=== PATIENT | male | born 1980 | race American Indian/Alaskan Native ===

== ENCOUNTER 2019-09-16 03:07 | Emergency (ER) | payer MEDICAID, OTHER ==
[2019-09-16] MEDS ORDERED: Lisinopril 10 MG Tab PO ONE (03:48)
--- NOTE | 2019-09-16 03:53 | EDM.PDOC ---
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 He admits to using methamphetamine every other day however today was different he used methamphetamine in combination with a red bull and did not like the way it made him feel. When I asked him how I can help him today he states that he would like to get his blood pressure under better control - Related Data Allergies Allergy/AdvReac Type Severity Reaction Status Date / Time No Known Allergies Allergy Verified 09/16/19 03:21 Home Meds: Home Meds amLODIPine Besylate [Amlodipine Besylate] 5 mg PO DAILY 09/16/19 [History] lisinopriL [Lisinopril] 20 mg PO DAILY 09/16/19 [History] Past Medical History Cardiovascular History: Reports: Hypertension Psychiatric History: Reports: Addiction Social & Family History - Tobacco Use Smoking Status *Q: Current Every Day Smoker Years of Tobacco use: 18 Packs/Tins Daily: 0.2 - Alcohol Use Days Per Week of Alcohol Use: 3 Number of Drinks Per Day: 5 Total Drinks Per Week: 15 - Recreational Drug Use Recreational Drug Use: Yes Drug Use in Last 12 Months: Yes Recreational Drug Type: Reports: Marijuana/Hashish, Methamphetamine Recreational Drug Use Frequency: Daily ED ROS GENERAL - Review of Systems Review Of Systems: See Below Constitutional: Reports: No Symptoms HEENT: Reports: No Symptoms Cardiovascular: Reports: Palpitations GI/Abdominal: Reports: No Symptoms Psychiatric: Reports: Anxiety ED EXAM, GENERAL - Physical Exam Exam: See Below Exam Limited By: No Limitations General Appearance: Alert, WD/WN, No Apparent Distress Respiratory/Chest: No Respiratory Distress, Lungs Clear, Normal Breath Sounds, No Accessory Muscle Use, Chest Non-Tender Cardiovascular: Regular Rate, Rhythm, No Murmur, Tachycardia Course - Vital Signs Last Recorded V/S: Last Vital Signs Temp 97.7 F 09/16/19 03:20 Pulse 107 H 09/16/19 03:20 Resp 16 09/16/19 03:20 BP 160/111 H 09/16/19 03:25 Pulse Ox 100 09/16/19 03:20 - Orders/Labs/Meds Meds: Medications Discontinued Medications Generic Name Dose Route Start Last Admin Trade Name Naina PRDesi Reason Stop Dose Admin Lisinopril 20 mg 09/16/19 03:48 Prinivil PO 09/16/19 03:49 ONETIME ONE Departure - Departure Time of Disposition: 03:52 Disposition: Home, Self-Care 01 Condition: Poor Clinical Impression: Hypertension Qualifiers: Hypertension type: essential hypertension Qualified Code(s): I10 - Essential (primary) hypertension - Discharge Information Instructions: Hypertension, Adult, [id number], Preventing Hypertension Referrals: John Root Sr, MD [Primary Care Provider] - Additional Instructions: Recommend filling your prescription for lisinopril today and follow-up with your primary care in the next 3 to 5 days for reevaluation, call or return to the emergency department worsening of symptoms Sepsis Event Note (ED) - Evaluation Sepsis Screening Result: No Definite Risk - Focused Exam Vital Signs: Vital Signs Temp Pulse Resp BP Pulse Ox 09/16/19 03:25 160/111 H 09/16/19 03:20 97.7 F 107 H 16 197/135 H 100 - Assessment/Plan Plan: Assessment Acuity = acute Site and laterality = hypertension complicated in a patient with methamphetamine use Etiology = medical compliance Manifestations = elevated blood pressure Location of injury = Home Lab values = none Plan He has a prescription for his lisinopril at [facility] which she states he is going to 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
== END 2019-09-16 04:04 | disposition home or self-care (01) ==
LOC: JP.ED 03:07
DX: I10 Essential (primary) hypertension (principal); F17.210 Nicotine dependence, cigarettes, uncomplicated; Z79.899 Other long term (current) drug therapy
CPT/HCPCS: 99284; A9270